=== PATIENT | female | born 1995 | race Caucasian/White ===

== ENCOUNTER 2022-09-21 10:50 | Emergency (ER) | payer BC, OTHER ==
[2022-09-21 10:58] VITALS: BMI 22.4
[2022-09-21] MEDS ORDERED: METHOTREXATE SODIUM/PF 25 MG/ML VIAL IM ONE (12:36)
[2022-09-21 12:59] LABS: BASO % 0.6 % (0-2.0); EOS % 2.3 % (0-4.5); HEMATOCRIT 40.9 % (32.4-45.2); HEMOGLOBIN 13.3 GM/dL (10.7-15.3); LYMPH % 27.3 % (8-40); MCH 28.9 pg (25.7-33.7); MCHC 32.6 g/dl (32.0-36.0); MEAN CELL VOLUME 88.5 fl (80-96); MEAN PLT VOLUME 6.3 fl (7.5-11.1); MONO % 7.4 % (3.8-10.2); NEUT % 62.4 % (42.8-82.8); PLATELET COUNT 360 10^3/uL (134-434); RBC 4.62 M/mm3 (3.60-5.2); RDW 14.2 % (11.6-15.6); WHITE BLOOD COUNT 10.3 K/mm3 (4.0-10.0)
[2022-09-21 13:22] LABS: POTASSIUM 4.1 mmol/L (3.5-5.1)
[2022-09-21 13:24] LABS: BLOOD UREA NITROGEN 11.5 mg/dL (7-18); CALCIUM 9.7 mg/dL (8.5-10.1)
[2022-09-21 13:25] LABS: ALBUMIN 4.1 g/dl (3.4-5.0)
[2022-09-21 13:28] LABS: CREATININE 0.7 mg/dL (0.55-1.3)
[2022-09-21 13:29] LABS: BILIRUBIN,TOTAL 0.6 mg/dL (0.2-1)
[2022-09-21 13:30] LABS: TOT PROT 7.8 g/dl (6.4-8.2)
[2022-09-21 14:54] VITALS: BP 110/74; PULSE 67; RESP 19; TEMP 97.9
== END 2022-09-21 14:55 | disposition home or self-care (01) ==
LOC: JERFT 10:50 → JER 10:50 → JERFT 14:55
PROC: 3E023GC Introduction of Other Therapeutic Substance into Muscle, Percutaneous Approach (ICD-10-PCS; principal; 2022-09-21)
DX: O00.90 Unspecified ectopic pregnancy without intrauterine pregnancy (principal)
CPT/HCPCS: 36415; 80053; 84702; 85025; 86850; 86900; 86901; 99284-25; J9260